=== PATIENT | male | born 1930 | race Caucasian/White ===

== ENCOUNTER 2016-11-26 08:38 | Emergency (ER) | payer BC ==
[~2016-11-26 08:38] MED LIST: DIOV80 PO; DIOVAN HCT160 MG/25 PO; FISH OIL1200 MG PO; FLONASE NAS; HUMI PO; HYT5 PO; LIPITOR10 PO; LOP25 PO; MVI PO; OMEGA-3 PO; PROTONIX PO; VITAMIN D PO; VITAMIN D31000 UNIT PO; XARELTO20 MG PO
== END 2016-11-26 09:33 | disposition home or self-care (01) ==
LOC: ER 08:38
DX: S70.02XA Contusion of left hip, initial encounter (principal); I10 Essential (primary) hypertension; I48.91 Unspecified atrial fibrillation; Z88.0 Allergy status to penicillin; Z79.899 Other long term (current) drug therapy; X58.XXXA Exposure to other specified factors, initial encounter
CPT/HCPCS: 72170; 73502-LT; 99283